=== PATIENT | female | born 1990 | race Caucasian/White ===

== ENCOUNTER 2017-04-23 13:00 | Inpatient (IN) | payer OTHER ==
[2017-04-23] MEDS ORDERED: AMPICILLIN - 2 GM in SODIUM CHLORIDE 100 ML IVPB ONE (13:15)
[2017-04-23] MEDS ORDERED: BENZOCAINE 28 GM HEMORRHOIDAL OINTMENT TP PRN (13:44)
[2017-04-23] MEDS ORDERED: IBUPROFEN 600 MG TABLET (FP) PO PRN (13:44)
[2017-04-23] MEDS ORDERED: ACETAMINOPHEN 325 MG TABLET (FP) PO PRN (13:44)
[2017-04-23] MEDS ORDERED: BISACODYL 10 MG SUPP.RECT RC PRN (13:44)
[2017-04-23] MEDS ORDERED: WITCH HAZEL 50% (TUCKS) 40 PAD/JAR PAD TP PRN (13:44)
[2017-04-23] MEDS ORDERED: METHYLERGONOVINE MALEATE 0.2 MG/1 ML AMP IM PRN (13:44)
[2017-04-23] MEDS ORDERED: BENZOCAINE 20% 57 GM BOTTLE TP PRN (13:44)
[2017-04-23] MEDS ORDERED: oxyCODONE HCL 5 MG TABLET PO PRN (13:44)
[2017-04-23] MEDS ORDERED: D5W-LR W/ 20 UNITS OXYTOCIN 20 UNIT/1,000 ML INFUS.BAG IV SCH (13:45)
[2017-04-23 14:03] VITALS: BMI 27.4
[2017-04-23 14:54] LABS: BASOPHIL 0.3 % (0-2.0); EOSINOPHIL 0.1 % (0-4.5); MCH 25.4 pg (25.7-33.7); MCHC 31.6 g/dl (32.0-36.0); MEAN CELL VOLUME 80.5 fl (80-96); NEUTROPHILS 92.8 % (42.8-82.8); PLATELET COUNT 166 K/MM3 (134-434); RDW 18.3 % (11.6-15.6); WHITE BLOOD COUNT 14.3 K/mm3 (4.0-10.0)
[2017-04-23 15:06] LABS: INR 0.94 (0.82-1.09); PROTHROMBIN TIME (PATIENT) 10.6 SEC (9.98-11.88)
[2017-04-23 15:09] LABS: ACTIVATED PTT 25.8 SECONDS (26.9-34.4)
[2017-04-23 15:12] LABS: ANION GAP 11 (8-16); CALCIUM 7.8 mg/dL (8.5-10.1); CO2 20 mmol/L (21-32); CREATININE 0.7 mg/dL (0.55-1.02); GLUCOSE,RANDOM 97 mg/dL (74-106)
[2017-04-23] MEDS ORDERED: AMPICILLIN - 1 GM in SODIUM CHLORIDE 100 ML IVPB SCH (17:15)
[2017-04-23] MEDS ORDERED: OXYTOCIN 20 UNITS in 0.9% NS 20 UNIT/1,000 ML INFUS.BAG IV SCH (18:30)
[2017-04-23] MEDS: FERROUS SO4 325 MG TABLET (FP) PO SCH (21:35)
--- NOTE | 2017-04-24 07:45 | PN ---
Post Progress Note - Subjective Subjective: no complains Post Day: 1 Type of Delivery: Vital Signs: Vital Signs Temperature 98.2 F 04/24/17 05:53 Pulse Rate 72 04/24/17 05:53 Respiratory Rate 18 04/24/17 05:53 Blood Pressure 103/62 04/24/17 05:53 O2 Sat by Pulse Oximetry (%) 100 04/23/17 15:00 Breast Exam: Yes: Soft. No: Engorged Uterus: Yes: Fundus Firm, Fundus below umbilicus, Non-tender Lochia: Yes: Rubra Lochia, amount: Moderate Extremities: Yes: Calves non-tender Perineum: Yes: Intact Activity: Ambulating - Labs Labs: CBC WBC 14.3 K/mm3 (4.0-10.0) H 04/23/17 14:15 RBC 4.47 M/mm3 (3.60-5.2) D 04/23/17 14:15 Hgb 11.4 GM/dL (10.7-15.3) D 04/23/17 14:15 Hct 36.0 % (32.4-45.2) 04/23/17 14:15 MCV 80.5 fl (80-96) 04/23/17 14:15 MCH 25.4 pg (25.7-33.7) L D 04/23/17 14:15 MCHC 31.6 g/dl (32.0-36.0) L 04/23/17 14:15 RDW 18.3 % (11.6-15.6) H D 04/23/17 14:15 Plt Count 166 K/MM3 (134-434) 04/23/17 14:15 MPV 10.0 fl (7.5-11.1) 04/23/17 14:15 Neutrophils % 92.8 % (42.8-82.8) H 04/23/17 14:15 Lymphocytes % 4.2 % (8-40) L D 04/23/17 14:15 Monocytes % 2.6 % (3.8-10.2) L 04/23/17 14:15 Eosinophils % 0.1 % (0-4.5) 04/23/17 14:15 Basophils % 0.3 % (0-2.0) 04/23/17 14:15 Assessment/Plan stable. Plan pp cbc today pending . discharge tomorrow.
[2017-04-24 08:40] LABS: BASOPHIL 0.4 % (0-2.0); MCH 25.7 pg (25.7-33.7); MCHC 31.9 g/dl (32.0-36.0); MEAN CELL VOLUME 80.4 fl (80-96); MEAN PLT VOLUME 10.2 fl (7.5-11.1); NEUTROPHILS 75.9 % (42.8-82.8); PLATELET COUNT 153 K/MM3 (134-434); RDW 18.1 % (11.6-15.6); WHITE BLOOD COUNT 12.7 K/mm3 (4.0-10.0)
[2017-04-24] MEDS: PRENATAL VITAMINS W/ FOLIC ACID TABLET (FP) PO SCH (09:52)
[2017-04-24] MEDS: FERROUS SO4 325 MG TABLET (FP) PO SCH ×2 (09:52→22:45)
[2017-04-24] MEDS ORDERED: SENNOSIDES/DOCUSATE COMBO (SENNA PLUS) TABLET (UD) PO PRN (22:00)
--- NOTE | 2017-04-25 09:03 | PN ---
Post Progress Note - Subjective Subjective: 27 yo Para 3 status post vaginal delivery, seen and evaluated. Doing well, no complaints. Post Day: 1 Type of Delivery: Vital Signs: Vital Signs Temperature 97.9 F 04/24/17 22:00 Pulse Rate 66 04/24/17 22:00 Respiratory Rate 18 04/24/17 22:00 Blood Pressure 98/70 04/24/17 22:00 O2 Sat by Pulse Oximetry (%) 100 04/23/17 15:00 Uterus: Yes: Fundus Firm Abdomen/GI: Yes: Abdomen soft Lochia: Yes: Rubra Lochia, amount: Moderate Extremities: Yes: Calves non-tender Activity: Ambulating - Labs Labs: CBC WBC 12.7 K/mm3 (4.0-10.0) H 04/24/17 08:00 RBC 4.02 M/mm3 (3.60-5.2) 04/24/17 08:00 Hgb 10.3 GM/dL (10.7-15.3) L 04/24/17 08:00 Hct 32.3 % (32.4-45.2) L 04/24/17 08:00 MCV 80.4 fl (80-96) 04/24/17 08:00 MCH 25.7 pg (25.7-33.7) 04/24/17 08:00 MCHC 31.9 g/dl (32.0-36.0) L 04/24/17 08:00 RDW 18.1 % (11.6-15.6) H 04/24/17 08:00 Plt Count 153 K/MM3 (134-434) 04/24/17 08:00 MPV 10.2 fl (7.5-11.1) 04/24/17 08:00 Neutrophils % 75.9 % (42.8-82.8) 04/24/17 08:00 Lymphocytes % 15.9 % (8-40) D 04/24/17 08:00 Monocytes % 5.8 % (3.8-10.2) D 04/24/17 08:00 Eosinophils % 2.0 % (0-4.5) D 04/24/17 08:00 Basophils % 0.4 % (0-2.0) 04/24/17 08:00 Assessment/Plan Status post normal vaginal delivery. Stable Continue routine care
[2017-04-25 09:47] VITALS: BP 113/54; PULSE 73; TEMP 98.8
[2017-04-25] MEDS: PRENATAL VITAMINS W/ FOLIC ACID TABLET (FP) PO SCH (10:00)
[2017-04-25] MEDS: FERROUS SO4 325 MG TABLET (FP) PO SCH (10:00)
--- NOTE | 2017-04-25 21:08 | HP ---
Past Medical History - Primary Care Physician PCP:: Bryan Sanchez (04/23/17) - Admission Chief Complaint: term, labor History of Present Illness: 27 yo f edc 04/20/17 40.3 weeks, in lbor cx 8 cm 100vx 0 ,mi ,fhr cat 1 , regular contractio History Source: Patient Limitations to Obtaining History: No Limitations - Past Medical History ...: 4 ...Para: 2 ...Term: 2 ...: 0 ...Spon : 1 ...Induced : 0 ...Multiple Gestation: 0 ...LMP: 07/14/16 ... Weeks Gestation by Dates: 40.3 ...EDC by Dates: 04/20/17 ...EDC by Sono: 04/30/17 - Past Surgical History Hx Myomectomy: No Hx Transabdominal Cerclage: No - Smoking History Smoking history: Never smoked Have you smoked in the past 12 months: No Aproximately how many cigarettes per day: 0 - Alcohol/Substance Use Hx Alcohol Use: No - Social History Usual Living Arrangement: Yes: With Spouse History of Recent Travel: No Home Medications - Allergies Allergies/Adverse Reactions: Allergies Allergy/AdvReac Type Severity Reaction Status Date / Time No Known Allergies Allergy Verified 04/22/17 07:36 - Home Medications Home Medications: Ambulatory Orders Ferrous Gluconate [Iron] 256 mg PO DAILY 04/22/17 Vit No.130/Iron/FA [ Vitamins] 1 each PO DAILY 04/22/17 Review of Systems - Review of Systems Constitutional: reports: No Symptoms Eyes: reports: No Symptoms HENT: reports: No Symptoms Neck: reports: No Symptoms Cardiovascular: reports: No Symptoms Respiratory: reports: No Symptoms Gastrointestinal: reports: No Symptoms Genitourinary: reports: No Symptoms Breasts: reports: No Symptoms Reported Musculoskeletal: reports: No Symptoms Integumentary: reports: No Symptoms Neurological: reports: No Symptoms Endocrine: reports: No Symptoms Hematology/Lymphatic: reports: No Symptoms Psychiatric: reports: No Symptoms Physical Exam - Maternity Vital Signs: Vital Signs Temperature 98.8 F 04/25/17 09:43 Pulse Rate 73 04/25/17 09:43 Respiratory Rate 18 04/25/17 09:43 Blood Pressure 113/54 04/25/17 09:43 O2 Sat by Pulse Oximetry (%) 100 04/23/17 15:00 Constitutional: Yes: Well Nourished, No Distress, Calm Eyes: Yes: WNL, Conjunctiva Clear, EOM Intact HENT: Yes: WNL, Atraumatic, Normocephalic Neck: Yes: WNL, Supple, Trachea Midline Cardiovascular: Yes: WNL, Regular Rate and Rhythm Breast(s): Yes: WNL - Abdominal Exam/OB Fundal Height: 38 Number of Fetuses: Single Presentation: Vertex Contractions: Yes Regularity: Regular Intensity: Strong Monitor Mode: External Heart Rate Location: LLQ Decelerations: None - Vaginal Exam/OB Vaginal Bleediing: No Dilatation (cm): 8 cm Effacement (%): 100 Amniotic Membrane Status: Bulging Presentation: Vertex/Position Station: 0 - Physical Exam Musculoskeletal: Yes: WNL Extremities: Yes: WNL Edema: LLE: Trace, RLE: Trace Deep Tendon Reflex Grade: Normal +2 Psychiatric: Yes: WNL - Labs Lab Results: CBC, BMP 04/24/17 08:00 04/23/17 14:15 Problem List - Problems (1) Post term over 40 weeks Code(s): O48.0 - POST-TERM (2) Labor established Code(s): EUW2486 - Assessment/Plan admit for vaginal delivery, FHM
--- NOTE | 2017-04-25 21:09 | DS ---
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: Vital Signs Temperature 98.8 F 04/25/17 09:43 Pulse Rate 73 04/25/17 09:43 Respiratory Rate 18 04/25/17 09:43 Blood Pressure 113/54 04/25/17 09:43 O2 Sat by Pulse Oximetry (%) 100 04/23/17 15:00 Constitutional: Yes: Well Nourished, No Distress, Calm Eyes: Yes: WNL, Conjunctiva Clear, EOM Intact HENT: Yes: WNL, Atraumatic, Normocephalic Neck: Yes: WNL, Supple, Trachea Midline Cardiovascular: Yes: WNL, Regular Rate and Rhythm Respiratory: Yes: WNL, Regular, CTA Bilaterally Gastrointestinal: Yes: WNL ...Rectal Exam: Yes: WNL Renal/: Yes: WNL ....Post : Yes: Uterus firm, Uterus non-tender, Slight lochia rubra Breast(s): Yes: WNL Musculoskeletal: Yes: WNL Extremities: Yes: WNL Integumentary: Yes: WNL Neurological: Yes: WNL, Alert, Oriented ...Motor Strength: WNL Psychiatric: Yes: WNL, Alert, Oriented Labs: CBC, BMP 04/24/17 08:00 04/23/17 14:15 Delivery - Delivery Vaginal Delivery: Spontaneous (no complication) Type of Anesthesia: None Episiotomy/Laceration: None EBL (cc): 300 Delivery, Single - Stages of Labor Date 1st Stage Initiatied: 04/23/17 Time 1st Stage Initiated: 08:00 Date 2nd Stage Initiated: 04/23/17 Time 2nd Stage Initiated: 13:30 Date of Delivery: 04/23/17 Time of Delivery: 13:36 Time Placenta Delivered: 13:38 Placenta: Yes: Spontaneous - 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 [facility] [address] [phone] if severe bleeding,pain or fever call md. Referrals: Bryan Sanchez MD [Staff Physician] - Disposition: HOME - Home Medications Comprehensive Discharge Medication List: Ambulatory Orders Ferrous Gluconate [Iron] 256 mg PO DAILY 04/22/17 Vit No.130/Iron/FA [ Vitamins] 1 each PO DAILY 04/22/17
== END 2017-04-25 12:35 | disposition home or self-care (01) | DRG 560 ==
LOC: JLDR 13:00 → J3W 15:05
PROVIDERS: ADMIT Obstetrics & Gynecology; ATTEND Obstetrics & Gynecology
PROC: 10E0XZZ Delivery of Products of Conception, External Approach (ICD-10-PCS; principal; 2017-04-24)
DX: O48.0 Post-term pregnancy (principal); Z3A.40 40 weeks gestation of pregnancy; Z37.0 Single live birth
CPT/HCPCS: 36415; 59409; 80048; 85025; 85610; 85730; 86593; 86850; 86900; 86901

== ENCOUNTER 2019-08-19 05:32 | Emergency (ER) | payer OTHER ==
[2019-08-19 06:38] VITALS: BP 106/67; PULSE 70; TEMP 100; BMI 25.7
[2019-08-19] MEDS ORDERED: IBUPROFEN 400 MG TABLET (FP) PO ONE ×2 (07:12→08:03)
--- NOTE | 2019-08-19 07:12 | PDOC ---
History of Present Illness - General Chief Complaint: Weakness Stated Complaint: WEAKNESS Time Seen by Provider: 08/19/19 07:02 History Source: Patient, Significant Other (Fiance at bedside) Exam Limitations: No Limitations - History of Present Illness Initial Comments: HPI: 29 y/o female presenting to [facility] ER complaining of two days of generalized we akness, body aches, and "a little" sore throat. Denies chest pain, SOB, vomiting, abd pain, urinary symptoms, or diarrhea. Drank gatorade and took two Tylenol pills last evening with some improvement in symptoms. Pt works at [employer] and expressed concern that she has become infected with COVID-19. Denies known exposure to quarantined individuals or anyone who has tested positive. Currently menstruating. Sick Contacts: Pediatric daughter recent sick with mild viral syndrome. Recent Travel: No Medical Hx: - Denies past medical history. Denies prescription medications. Surgical Hx: - Pt denies past surgical history. Review of Systems: In addition to that documented in the HPI above, the additional ROS was o btained: Constitutional- Denies fevers or chills Head- Denies vision changes ENMT- Per HPI CV- Denies chest pain Resp- Denies SOB GI- Denies vomiting or diarrhea - Denies painful urination, hematuria, or increased urinary frequency MSK- Denies recent trauma Skin- Denies new rashes Neuro- Denies new numbness or tingling Endocrine- Denies polyuria Heme- Denies bleeding or bruising Physical Examination: Vital signs and nursing notes reviewed. Constitutional- Well-developed, well-nourished adult female in no acute distress or obvious discomfort. Found sitting upright on edge of hospital bed. Answered all questions appropriately and completely. Head- Normocephalic. No obvious external signs of trauma. Eyes- Sclerae white. Conjunctiva moist and not injected. Throat- Oral cavity and pharynx normal. No inflammation, swelling, exudate, or lesions. Teeth and gingiva in good general condition. Neck- Supple, trachea is midline. Cardiovascular / Chest- Regular rate and regular rhythm. No murmur, rubs, clicks, or gallops. Peripheral pulses- radial pulses full. No pretibial edema. Respiratory- Breathing unlabored. Equal chest rise and fall. Clear to auscultation bilaterally. No stridor, no wheezing, no rhonchi. Gastrointestinal- abdomen is soft, non-tender, non-distended. Neuro- Alert and oriented x4. Moving all four extremities spontaneously. No facial asymmetry. No slurred speech. Skin- Warm, dry, and intact. - No R or L CVA tenderness. Psych- Affect- appropriate. Mood- normal. Speech was non-labored, non- pressured. MDM: 29 y/o female presenting with generalized weakness and body aches x2 days. Recent sick contact. Febrile at triage. Vitals unremarkable for hypotension or tachycardia. Physical exam as described above. Suspect likely viral syndrome. Low suspicion for strep pharyngitis vs PNA vs meningitis. Will test for influenza and . Ordered Motrin for symptom relief. Influenza and tests are negative. Discussed physical exam findings and laboratory data with pt. Answered all questions. Provided return precautions. pt expressed verbal understanding and agreement with plan to discharge home with outpatient follow up as needed. Provided copies of todays results. Also provided informational packet on COVID- 19. Khari Marcano M.D., PGY2 Emergency Medicine Resident Past History - Past Medical History Allergies/Adverse Reactions: Allergies Allergy/AdvReac Type Severity Reaction Status Date / Time No Known Allergies Allergy Verified 08/19/19 06:38 Home Medications: Ambulatory Orders Ferrous Gluconate [Iron] 256 mg PO DAILY 04/22/17 Vit No.130/Iron/Folic [ Vitamins] 1 each PO DAILY 04/22/17 Asthma: No Cancer: No Cardiac Disorders: No Diabetes: No HTN: No Seizures: No Thyroid Disease: No - Psycho Social/Smoking Cessation Hx Smoking Status: No Smoking History: Never smoked Have you smoked in the past 12 months: No Number of Cigarettes Smoked Daily: 0 Information on smoking cessation initiated: No Hx Alcohol Use: No Drug/Substance Use Hx: No Substance Use Type: None Hx Substance Use Treatment: No *Physical Exam - Vital Signs Last Vital Signs Temp Pulse Resp BP Pulse Ox 100 F H 70 17 106/67 97 08/19/19 05:40 08/19/19 05:40 08/19/19 05:40 08/19/19 05:40 08/19/19 05:40 Discharge - Discharge Information Problems reviewed: Yes Clinical Impression/Diagnosis: Generalized body aches Fever Qualifiers: Fever type: unspecified Qualified Code(s): R50.9 - Fever, unspecified Condition: Good Disposition: HOME - Admission No - Follow up/Referral - Patient Discharge Instructions Patient Printed Discharge Instructions: DI for Viral Syndrome Additional Instructions: You were seen today for weakness and body aches. You had a fever in the ED today. Your test and your flu tests were negative. You likely have a viral infection. You should self isolate yourself from friends and family until your fever has resolved. I have also included a packet of information on the Coronavirus infection (COVID-19) for you to read. This does not necessarily mean you have this virus. You can take over the counter Tylenol (Acetaminophen) and Advil/Motrin (Ibuprofen) for pain and fever. Follow the instructions on the package insert. Do not take more than the recommended dose. An example regimen is as follows: 12:00 pm 400mg Ibuprofen/Advil/Motrin 3:00 pm 1000mg Tylenol 6:00 pm 400mg Ibuprofen/Advil/Motrin 9:00 pm 1000mg Tylenol 12:00 am 400mg Ibuprofen/Advil/Motrin etc. Go to the nearest emergency department if your condition worsens or you feel like you need additional emergency evaluation. Print Language: SOMALI - Post Discharge Activity Work/Back to School Note: Back to Work
--- NOTE | 2019-08-19 07:43 | PDOC ---
Documentation entered by Pradip Cervantes SCRIBE, acting as scribe for Lucien Johnson MD. Lucien Johnson MD: This documentation has been prepared by the Helen chen Xhesika, SCRIBE, under my direction and personally reviewed by me in its entirety. I confirm that the documentation accurately reflects all work, treatment, procedures, and medical decision making performed by me. Attending Attestation - Resident Resident Name: MarcanoKhari - ED Attending Attestation I have performed the following: I have examined & evaluated the patient, The case was reviewed & discussed with the resident, I agree w/resident's findings & plan, Exceptions are as noted - Physicial Exam PE: 08/19/19 07:42 EXAMINATION CONSTITUTIONAL: Well-appearing; well-nourished; in no apparent distress HEAD: Normocephalic; atraumatic EYES: PERRL; EOM intact ENMT: External appears normal; normal oropharynx NECK: Supple; non-tender; no cervical lymphadenopathy CARD: Normal S1, S2; no murmurs, rubs, or gallops RESP: Normal chest excursion with respiration; breath sounds clear and equal bilaterally; no wheezes, rhonchi, or rales ABD: Soft, non-distended; non-tender; no palpable organomegaly, no palpable hernias EXT: Normal ROM in all four extremities; non-tender to palpation; distal pulses intact SKIN: Warm, dry, no rash NEURO: No focal neurological deficiencies. - Medical Decision Making 08/19/19 07:43 29-year-old female presents with flulike symptoms for the past 48 hours. In the ER, patient is awake and alert, nontoxic-appearing, without evidence of meningismus. Will test for the flu. Likely discharge.
== END 2019-08-19 08:25 | disposition home or self-care (01) ==
LOC: JER 05:32
DX: R50.9 Fever, unspecified (principal); R52 Pain, unspecified
CPT/HCPCS: 84703; 87804; 99283-25

== ENCOUNTER 2023-07-09 19:45 | Inpatient (IN) | payer OTHER ==
[2023-07-09] MEDS ORDERED: PENICILLIN G POTASSIUM 5,000,000 UNIT/250 ML BAG IVPB ONE ×2 (21:14→21:30)
[2023-07-09] MEDS ORDERED: ELECTROLYTE-148 SOLN 1,000 ML IV SCH (21:15)
[2023-07-09 21:40] LABS: BASO % 0.6 % (0-2.0); EOS % 0.7 % (0-4.5); HEMATOCRIT 37.1 % (32.4-45.2); HEMOGLOBIN 11.6 GM/dL (10.7-15.3); LYMPH % 15.5 % (8-40); MCH 25.2 pg (25.7-33.7); MCHC 31.4 g/dl (32.0-36.0); MEAN CELL VOLUME 80.4 fl (80-96); MEAN PLT VOLUME 9.9 fl (7.5-11.1); MONO % 6.1 % (3.8-10.2); NEUT % 77.1 % (42.8-82.8); PLATELET COUNT 241 10^3/uL (134-434); RBC 4.61 M/mm3 (3.60-5.2); RDW 16.1 % (11.6-15.6); WHITE BLOOD COUNT 11.6 K/mm3 (4.0-10.0)
[2023-07-09 21:49] LABS: INR 0.92 (0.83-1.09); PROTHROMBIN TIME (PATIENT) 10.7 SEC (9.7-13.0)
[2023-07-09 21:52] LABS: ACTIVATED PTT 27.2 SECONDS (25.2-36.5)
[2023-07-09 21:57] LABS: POTASSIUM 4.5 mmol/L (3.5-5.1)
[2023-07-09 21:59] LABS: BLOOD UREA NITROGEN 8.9 mg/dL (7-18); CALCIUM 8.9 mg/dL (8.5-10.1)
[2023-07-09 22:02] VITALS: BMI 32.9
[2023-07-09 22:02] LABS: CREATININE 0.6 mg/dL (0.55-1.3)
[2023-07-10] MEDS: PENICILLIN G POTASSIUM 2,500,000 UNIT in SODIUM CHLORIDE 100 ML IVPB SCH ×2 (01:45→05:55)
[2023-07-10] MEDS ORDERED: OXYTOCIN 20 UNITS in 0.9% NS 20 UNIT/1,000 ML INFUS.BAG IV ONE (02:31)
[2023-07-10] MEDS ORDERED: LIDOCAINE HCL 1% PRESERVATIVE FREE - 30ML VIAL ONE (02:32)
[2023-07-10] MEDS ORDERED: BENZOCAINE 28 GM HEMORRHOIDAL OINTMENT TP PRN (04:05)
[2023-07-10] MEDS ORDERED: BISACODYL 10 MG SUPP.RECT RC PRN (04:05)
[2023-07-10] MEDS ORDERED: IBUPROFEN 600 MG TABLET (FP) PO PRN (04:05)
[2023-07-10] MEDS ORDERED: WITCH HAZEL 50% (TUCKS) 40 PAD/JAR PAD TP PRN (04:05)
[2023-07-10] MEDS ORDERED: ACETAMINOPHEN 325 MG TABLET (FP) PO PRN (04:05)
[2023-07-10] MEDS ORDERED: METHYLERGONOVINE MALEATE 0.2 MG/1 ML AMP IM PRN (04:05)
[2023-07-10] MEDS ORDERED: BENZOCAINE 20% 57 GM BOTTLE TP PRN (04:05)
[2023-07-10] MEDS ORDERED: OXYTOCIN 20 UNITS in 0.9% NS 20 UNIT/1,000 ML INFUS.BAG IV SCH (04:15)
[2023-07-10] MEDS: PRENATAL VITAMINS W/ FOLIC ACID TABLET (FP) PO SCH (09:21)
[2023-07-11 07:06] LABS: BASO % 0.5 % (0-2.0); EOS % 1.2 % (0-4.5); HEMATOCRIT 30.2 % (32.4-45.2); HEMOGLOBIN 9.6 GM/dL (10.7-15.3); LYMPH % 17.8 % (8-40); MCH 25.6 pg (25.7-33.7); MCHC 31.8 g/dl (32.0-36.0); MEAN CELL VOLUME 80.3 fl (80-96); MEAN PLT VOLUME 9.7 fl (7.5-11.1); MONO % 5.4 % (3.8-10.2); NEUT % 75.1 % (42.8-82.8); PLATELET COUNT 198 10^3/uL (134-434); RBC 3.76 M/mm3 (3.60-5.2); RDW 16.1 % (11.6-15.6); WHITE BLOOD COUNT 13.8 K/mm3 (4.0-10.0)
[2023-07-11] MEDS: PRENATAL VITAMINS W/ FOLIC ACID TABLET (FP) PO SCH (09:38)
[2023-07-11] MEDS: FERROUS SO4 325 MG TABLET (FP) PO SCH (12:32)
[2023-07-11] MEDS ORDERED: SENNOSIDES/DOCUSATE COMBO (SENNA PLUS) TABLET (UD) PO PRN (22:00)
[2023-07-12] MEDS: FERROUS SO4 325 MG TABLET (FP) PO SCH (10:01)
[2023-07-12] MEDS: PRENATAL VITAMINS W/ FOLIC ACID TABLET (FP) PO SCH (10:01)
[2023-07-12 12:53] VITALS: BP 103/64; PULSE 86; RESP 17; TEMP 98.4
== END 2023-07-12 14:35 | disposition home or self-care (01) | DRG 560 ==
LOC: JDEL 19:45 → JLDR 20:25 → J3W 07-10 06:08
PROVIDERS: ADMIT Obstetrics & Gynecology Obstetrics; ATTEND Obstetrics & Gynecology Obstetrics
PROC: 10E0XZZ Delivery of Products of Conception, External Approach (ICD-10-PCS; principal; 2023-07-10)
DX: O48.0 Post-term pregnancy (principal); Z3A.40 40 weeks gestation of pregnancy; O99.824 Streptococcus B carrier state complicating childbirth; Z37.0 Single live birth
CPT/HCPCS: 36415; 80048; 85025; 85610; 85730; 86780; 86850; 86900; 86901